=== PATIENT | female | born 1960 ===

== ENCOUNTER 2024-02-04 07:04 | Emergency (ER) | payer OTHER ==
[2024-02-04] MEDS ORDERED: DIPHENHYDRAMINE 50 MG/ML VIAL ONE (07:30)
[2024-02-04] MEDS ORDERED: METOCLOPRAMIDE 10 MG/2mL INJ ONE (07:30)
[2024-02-04] MEDS ORDERED: NA CHLORIDE 0.9% 1,000 ML ONE (07:30)
[2024-02-04 07:50] LABS: Absolute Lymphocytes (CBC) 1.2 K/uL (0.7-4.9); Absolute Monocytes 0.3 K/uL (0.1-1.3); Absolute Neutrophil 3.2 K/uL (1.8-8.0); Basophils % 0.8 % (0-1.3); Eosinophils % 0.8 % (0-4.4); Hematocrit 41.2 % (36.0-45.0); Hemoglobin 13.6 g/dL (12.0-15.0); Lymphocytes % 24.2 % (15.3-44.8); MCH 31.2 pg (27.0-35.0); MCHC 32.9 g/dL (32.0-36.0); MCV 94.9 fL (80-100); Monocytes % 6.8 % (3.3-12.3); Neutrophils % 67.4 % (41.7-73.7); Platelets 285 thou/uL (152-406); RBC Red Blood Cell Count 4.34 M/uL (3.86-4.86); Red Cell Distribution Width 13.6 % (12.1-15.2)
[2024-02-04 07:59] LABS: Albumin 3.5 g/dL (3.4-5.0); Albumin/Globulin Ratio 0.9 (1.1-1.8); Anion Gap 7.7 mEq/L (5.0-15.0); Bilirubin Total 0.7 mg/dL (0.2-1.0); Globulin 3.9 g/dL (2.3-3.5); Potassium 3.7 mEq/L (3.5-5.1); Protein, Total 7.4 g/dL (6.4-8.2)
[2024-02-04 08:53] LABS: Specific Gravity > 1.030 (1.005-1.030); Urine Bacteria <20 /HPF (<20); Urine Bilirubin NEGATIVE (Negative); Urine Blood 2+ (Negative); Urine Clarity Turbid (Clear); Urine Color Colorless (Yellow); Urine Culture Reflex Order NOT NEEDED; Urine Glucose NEGATIVE (Negative); Urine Ketones NEGATIVE (Negative); Urine Microscopic Reflex YN ORDER UMIC; Urine Mucus Slight /HPF (None Seen); Urine Nitrite NEGATIVE (Negative); Urine Protein NEGATIVE (Negative); Urine Urobilinogen Normal (Normal); Urine WBC <5 /HPF (<5)
--- NOTE | 2024-02-04 09:05 | RAD REPORT ---
EXAM DESCRIPTION: CT - Abdomen Pelvis W Contrast - 02/04/2024 8:19 am CLINICAL HISTORY: ABD PAIN COMPARISON: No comparisons TECHNIQUE: Thin cut axial CT imaging of the abdomen and pelvis was performed following intravenous a dministration of 100 mL Isovue 300. Multiplanar reformats were generated and reviewed. All CT scans are performed using dose optimization technique as appropriate and may include automated exposure control or mA/KV adjustment according to patient size. FINDINGS: No suspicious findings in the lung bases. The liver, spleen, adrenal glands, and pancreas show no suspicious findings. Gallbladder and biliary tree are also without suspicious finding. Minimal renal pelvis dilation on the left, and mildly delayed uptake relatively on that side. No sign ificant hydroureteronephrosis otherwise. 5 mm calculus present along the proximal left ureter. No diana picious mass No dilated bowel loops or bowel wall thickening. Appendix is unremarkable. No free air, free fluid or inflammatory stranding. No hernia, mass or bulky lymphadenopathy. The urinary bladder is without sig nificant finding. No suspicious bony findings. IMPRESSION: 5 mm left proximal ureter calculus. Minimal prominence of the left renal pelvis, and mil d perinephric fat stranding slightly suggesting recent obstruction. The findings were communicated to Raj Brown on 02/04/2024 at 08:59 hours.
--- NOTE | 2024-02-04 09:26 | EDPHYS ---
Physician Documentation [facility] Name: Diana Michelle Age: 64 yrs Sex: Female : 1960 Arrival Date: 02/04/2024 Time: 07:04 Bed 13 Private MD: ED Physician Raj Brown HPI: 02/03 07:26 This 64 yrs old Female presents to ER via Ambulatory with complaints of Vomiting. ec2 07:26 Patient arrives today for evaluation of left-sided abdominal pain. Patient reports that ec2 she did have left-sided gabapentin earlier this morning. Reports associated nausea and retching. Patient reports no diarrhea symptoms, no urinary complaints. Patient reports previous history of kidney stones as well as hysterectomy.. Historical: - Allergies: 07:16 No Known Allergies; aa5 - PMHx: 07:16 Hypertensive disorder; Kidney stone; Hypercholesterolemia; aa5 - PSHx: 07:16 hysterectomy; Tonsillectomy; aa5 - Immunization history:: Adult Immunizations unknown. - Infectious Disease History:: Denies. - Social history:: Smoking status: Patient denies any tobacco usage or history of. ROS: 07:26 Constitutional: as per hpi ec2 Exam: 07:26 Constitutional: GEN: NAD Head: atraumatic Eyes: EOMI Ears: External ears are ec2 normal. CV: regular rate LUNGS: no respiratory distress ABD: non-distended, soft, tender left lower quadrant, no guarding, not rigid. SKIN: no evidence of rashes MSK: no evidence of trauma NEURO: moves all extremities equally Vital Signs: 07:12 BP 144 / 101; Pulse 59; Resp 18 S; Temp 98.6(O); Pulse Ox 100% on R/A; Weight 89.81 kg aa5 (R); Height 5 ft. 4 in. (R); 08:05 BP 123 / 65; Pulse 64; Resp 14 S; Pulse Ox 97% ; aa5 09:25 BP 128 / 74; Pulse 62; Resp 16 S; Pulse Ox 98% on R/A; aa5 07:12 Body Mass Index 33.99 (89.81 kg, 162.56 cm) aa5 MDM: 07:19 Patient medically screened. ec2 07:26 Data reviewed: vital signs. ED course: Patient arrives today for evaluation of ec2 left-sided abdominal pain. Examination remarkable for abdominal findings as above. Will obtain lab work, CT imaging, urine studies as well as treat the patient's symptoms. Evaluate for processes such as ureteral stones, UTI, diverticulitis.. 08:15 ED course: CBC, metabolic profile, lipase are nonactionable. Pending CT imaging. . ec2 09:00 ED course: Urine shows blood, noninfectious appearing. CT imaging shows 5 mm ureteral ec2 stone with mild hydronephrosis. . 09:25 ED course: Of note patient reports history of ureteral stones, has urology doctor at ec2 her home in [place] and will follow-up with them accordingly. Patient discharged home. Return precautions given.. 02/03 07:20 Order name: CBC with Diff; Complete Time: 08:15 ec2 02/03 07:20 Order name: CMP; Complete Time: 08:15 ec2 02/03 07:20 Order name: Lipase; Complete Time: 08:15 ec2 02/03 07:20 Order name: Urinalysis w/ reflexes; Complete Time: 09:00 ec2 02/03 07:20 Order name: CT Abd/Pelvis - IV Contrast Only; Complete Time: 09:21 ec2 02/03 07:20 Order name: IV Saline Lock; Complete Time: 07:35 ec2 02/03 07:20 Order name: Labs collected and sent; Complete Time: 07:35 ec2 Administered Medications: 07:37 Drug: diphenhydrAMINE IVP 50 mg IVP once Route: IVP; Site: left antecubital; aa5 07:45 Follow up: Response: No adverse reaction aa5 07:38 Drug: NS 0.9% IV 1000 ml IV at 1 bolus Per protocol; 1000 mL bolus Route: IV; Rate: 1 aa5 bolus; Site: left antecubital; 09:00 Follow up: IV Status: Completed infusion; IV Intake: 1000ml aa5 07:38 Drug: metoCLOPramide IVP 10 mg IVP once; over 1 to 2 minutes Route: IVP; Site: left aa5 antecubital; 07:45 Follow up: Response: No adverse reaction aa5 Disposition Summary: 02/04/24 09:25 Discharge Ordered Notes: Location: Home ec2 Condition: Stable ec2 Diagnosis - Calculus of ureter ec2 Followup: ec2 - With: Private Physician - When: - Reason: Re-evaluation by your physician Followup: ec2 - With: Colton Fitzpatrick MD - When: - Reason: Recheck today's complaints Discharge Instructions: - Discharge Summary Sheet ec2 - Renal Colic, [id number] ec2 Forms: - Medication Reconciliation Form ec2 - Antibiotic Education ec2 - Prescription Opioid Use ec2 - Patient Portal Instructions ec2 - Leadership Thank You Letter ec2 Prescriptions: - codeine sulfate 30 mg Oral tablet - take 1 tablet ORAL route every 6 hours; 15 tablet; Refills: 0, Product ec2 Selection Permitted - Zofran 4 mg Oral Tablet - take 1 tablet ORAL route every 12 hours As needed; 20 tablet; Refills: 0, ec2 Product Selection Permitted Signatures: Dispatcher [employer] Lucero Tobar RN RN aa5 Raj Brown MD MD ec2 Corrections: (The following items were deleted from the chart) 07:21 07:21 CBC+H.LAB.BRZ ordered. EDMS EDMS 07:21 07:21 COMPREHENSIVE METABOLIC PANEL+C.LAB.BRZ ordered. EDMS EDMS 07:21 07:21 LIPASE+C.LAB.BRZ ordered. EDMS EDMS 07:21 07:21 Urinalysis+U.LAB.BRZ ordered. EDMS EDMS 08:41 08:38 Schwarz ordered. ec2 aa5
--- NOTE | 2024-02-04 09:26 | ER ---
Nurse's Notes [facility] Name: Diana Michelle Age: 64 yrs Sex: Female : 1960 Arrival Date: 02/04/2024 Time: 07:04 Bed 13 Private MD: Diagnosis: Calculus of ureter Presentation: 02/03 07:12 Chief complaint: Patient states: "I've been dry heaving all morning, I ate dinner but aa5 it didn't come up". Pt c/o LLQ pain since 0500 today and urinary urgency/frequency x 1 week. 07:12 Coronavirus screen: At this time, the client does not indicate any symptoms associated aa5 with coronavirus-19. Ebola Screen: Patient denies travel to an Ebola-affected area in the 21 days before illness onset. Initial Sepsis Screen: Does the patient meet any 2 criteria? No. Patient's initial sepsis screen is negative. Does the patient have a suspected source of infection? No. Patient's initial sepsis screen is negative. Risk Assessment: Do you want to hurt yourself or someone else? Patient reports no desire to harm self or others. Onset of symptoms was February 04, 2024. 07:12 Acuity: RUMA 3 aa5 07:12 Method Of Arrival: Ambulatory aa5 Historical: - Allergies: 07:16 No Known Allergies; aa5 - PMHx: 07:16 Hypertensive disorder; Kidney stone; Hypercholesterolemia; aa5 - PSHx: 07:16 hysterectomy; Tonsillectomy; aa5 - Immunization history:: Adult Immunizations unknown. - Infectious Disease History:: Denies. - Social history:: Smoking status: Patient denies any tobacco usage or history of. Screenin:12 [facility] ED Fall Risk Assessment (Adult) History of falling in the last 3 months, aa5 including since admission No falls in past 3 months (0 pts) Confusion or Disorientation No (0 pts) Intoxicated or Sedated No (0 pts) Impaired Gait No (0 pts) Mobility Assist Device Used No (0 pt) Altered Elimination No (0 pt) Score/Fall Risk Level 0 - 2 = Low Risk Oriented to surroundings, Maintained a safe environment, Educated pt \\T\\ family on fall prevention, incl call for assistance when getting out of bed. Abuse screen: Denies threats or abuse. Nutritional screening: No deficits noted. Tuberculosis screening: No symptoms or risk factors identified. Assessment: 07:12 General: Appears uncomfortable, Behavior is cooperative. Pain: Complains of pain in aa5 left lower quadrant. Neuro: Level of Consciousness is awake, alert, obeys commands, Oriented to person, place, time, situation. Cardiovascular: Heart tones S1 S2 present Rhythm is regular. Respiratory: Airway is patent Respiratory effort is even, unlabored, Respiratory pattern is regular, symmetrical. GI: Abdomen is round non-distended, Bowel sounds present X 4 quads. Abd is soft and non tender X 4 quads. Reports nausea, dry heaving since this morning. Pt currently dry heaving. : Reports urgency, urinary frequency, since 1 week ago. EENT: No signs and/or symptoms were reported regarding the EENT system. Derm: Skin is dry, Skin is normal, Skin temperature is warm. Musculoskeletal: Range of motion: intact in all extremities. 08:05 Reassessment: Patient states feeling better. Patient states symptoms have improved. aa5 Neuro: Level of Consciousness is awake, alert, obeys commands, Oriented to person, place, time, situation. Respiratory: Airway is patent Respiratory effort is even, unlabored, relaxed, Respiratory pattern is regular, symmetrical. GI: Patient currently denies nausea. Derm: Skin is dry, Skin is normal, Skin temperature is warm. 08:16 Reassessment: Pt now in CT . aa5 08:30 Reassessment: Pt ambulatory to restroom, urine sample sent to lab. Pt now back in bed aa5 resting, extra warm blankets provided for comfort. Currently denies nausea. . 09:00 Reassessment: Pt resting in bed, respirations relaxed and unlabored. . aa5 09:50 Reassessment:. Neuro: Level of Consciousness is awake, alert, obeys commands, Oriented aa5 to person, place, time, situation. Respiratory: Airway is patent Respiratory effort is even, unlabored, Respiratory pattern is regular, symmetrical. Derm: Skin is dry, Skin is normal, Skin temperature is warm. Vital Signs: 07:12 BP 144 / 101; Pulse 59; Resp 18 S; Temp 98.6(O); Pulse Ox 100% on R/A; Weight 89.81 kg aa5 (R); Height 5 ft. 4 in. (R); 08:05 BP 123 / 65; Pulse 64; Resp 14 S; Pulse Ox 97% ; aa5 09:25 BP 128 / 74; Pulse 62; Resp 16 S; Pulse Ox 98% on R/A; aa5 07:12 Body Mass Index 33.99 (89.81 kg, 162.56 cm) aa5 ED Course: 07:06 Patient arrived in ED. mg5 07:09 Raj Brown MD is Attending Physician. ec2 07:12 Arm band placed on Patient placed in an exam room, on a stretcher. aa5 07:12 Patient has correct armband on for positive identification. Placed in gown. Bed in low aa5 position. Call light in reach. Side rails up X2. Adult w/ patient. 07:15 Lucero Santos, RN is Primary Nurse. aa5 07:18 Triage completed. aa5 07:35 CBC with Diff Sent. bc6 07:35 CMP Sent. bc6 07:35 Lipase Sent. bc6 07:35 Initial lab(s) drawn, by me, sent to lab. Inserted saline lock: 22 gauge in left bc6 antecubital area, using aseptic technique. Blood collected. 08:21 CT Abd/Pelvis - IV Contrast Only In Process Unspecified. EDMS 09:24 Colton Fitzpatrick MD is Referral Physician. ec2 09:50 No provider procedures requiring assistance completed. IV discontinued, intact, aa5 bleeding controlled, No redness/swelling at site. Pressure dressing applied. Administered Medications: 07:37 Drug: diphenhydrAMINE IVP 50 mg IVP once Route: IVP; Site: left antecubital; aa5 07:45 Follow up: Response: No adverse reaction aa5 07:38 Drug: NS 0.9% IV 1000 ml IV at 1 bolus Per protocol; 1000 mL bolus Route: IV; Rate: 1 aa5 bolus; Site: left antecubital; 09:00 Follow up: IV Status: Completed infusion; IV Intake: 1000ml aa5 07:38 Drug: metoCLOPramide IVP 10 mg IVP once; over 1 to 2 minutes Route: IVP; Site: left aa5 antecubital; 07:45 Follow up: Response: No adverse reaction aa5 Medication: 08:27 VIS not applicable for this client. aa5 Intake: 09:00 IV: 1000ml; Total: 1000ml. aa5 Outcome: 09:25 Discharge ordered by . ec2 09:50 Discharged to home ambulatory, with family, aa5 09:50 Condition: improved 09:50 Discharge instructions given to patient, Instructed on discharge instructions, follow up and referral plans. medication usage, Demonstrated understanding of instructions, follow-up care, medications, Prescriptions given X 2, 09:52 Patient left the ED. aa5 Signatures: Dispatcher [employer] Lucero Tobar RN RN aa5 Edith Montes 6 Tamara Faustin mg5 Raj Brown MD MD ec2
[2024-02-04 10:18] VITALS: BP 123/65; TEMP 98.6; O2SAT 97
== END 2024-02-04 09:52 | disposition home or self-care (01) ==
LOC: ER 07:04
DX: N20.1 Calculus of ureter (principal); Z87.442 Personal history of urinary calculi
CPT/HCPCS: 96361; 85025; 81001; 36415; 83690; 80053; 74177; 96375; 96374; 99284; Q9967; J2765; J1200; J7030